=== PATIENT | male | born 1935 | race Caucasian/White ===

== ENCOUNTER 2016-12-21 09:14 | Inpatient (IN) ==
--- NOTE | 2016-12-17 14:56 | EKG Report ---
Stationary ECG Study [facility] Test Date: 12/17/2016 2:56:23 PM Pat Name: ARTURO MELGAR Department: Room: Gender: M Trade Recruiter: MANUEL MENDOZA : 1935 Requested by: Dante Mendoza Order Number: [id number] Reading MD: LUIS DELGADO Intervals Edwards Rate: 55 P: 83 IL: 136 QRS: 94 QRSD: 117 T: 56 QT: 455 QTc: 445 Interpretive Statements SINUS RHYTHM BORDERLINE RIGHT AXIS DEVIATION LEFT VENTRICULAR HYPERTROPHY AND ST-T CHANGE Electronically Signed On 12-20-16 18:24:37 CDT by LUIS DELGADO [email or web address]
[2016-12-17 15:04] LABS: Basophils % 0.5 % (0.0-0.8); Eosinophils # 0.2 10*3/uL (0.0-0.87); Eosinophils % 2.4 % (0.00-10.9); Hematocrit 39.4 VOL% (42.0-52.0); Hemoglobin 13.1 GM/DL (14.0-18.0); Immature Granulocytes % 0.3 %; Immature Granulocytes Absolute 0.02 #; Lymphocytes % 31.8 % (21.2-54.2); Mean Corpuscular HGB Conc 33.2 GM/DL (32-36); Mean Corpuscular Hemoglobin 32 PG (27-34); Mean Corpuscular Volume 95.4 FL (87-102); Mean Platelet Volume 9.5 FL (9.6-12.0); Monocytes # 0.5 10*3/uL (0.11-0.8); Monocytes % 8.4 % (1.7-12.7); Neutrophils # 3.5 10*3/uL (1.4-7.4); Neutrophils % 56.6 % (38.7-73.9); Platelet Count 225 T/CUMM (130-400); Red Blood Count 4.13 MC/CUMM (3.8-5.5); Red Cell Distribution Width 13.2 % (9.3-17.3); White Blood Count 6.2 T/CUMM (4-12)
--- NOTE | 2016-12-17 15:14 | XRay Report ---
XR chest 2V Indication: Preop Comparison: None. Technique: PA and lateral chest x-ray was performed. Findings: Heart size, mediastinal contour, and hilar structures demonstrate no significant abnormalities. The lung parenchyma is clear. Bones and soft tissues demonstrate no significant abnormalities. Impression: 1. No active cardiopulmonary disease. 12/17/2016 3:12 PM PROCEDURE INTERPRETED AT [facility] DEPARTMENT OF RADIOLOGY Final Report Signed by: Dr. Marlon Sorensen
[2016-12-17 15:59] LABS: Albumin 3.6 G/DL (3.4-5.0); Bilirubin,Total 0.6 MG/DL (0.2-1.0); Osmolality,Calculated 288.1 MOS/KG (273-304); Potassium 4.2 MMOL/L (3.5-5.1); Total Protein 6.6 G/DL (6.4-8.3)
[2016-12-21] MEDS ORDERED: ceFAZolin 1,000 MG VIAL ONE (09:26)
[2016-12-21] MEDS ORDERED: SODIUM CHLORIDE 0.9% 100 ML IV ONE (09:26)
[2016-12-21] MEDS: LACTATED RINGERS 1,000 ML IV SCH ×2 (09:50→21:43)
[2016-12-21] MEDS ORDERED: FAMOTIDINE 20 MG TABLET PO ONE (09:59)
[2016-12-21] MEDS ORDERED: DIAZEPAM 5 MG TABLET PO ONE (09:59)
[2016-12-21] MEDS ORDERED: FAMOTIDINE 20 MG TABLET ONE (11:14)
[2016-12-21] MEDS ORDERED: TISSUE ADHESIVE 1 EACH APPLICATOR TOP ONE (13:02)
[2016-12-21] MEDS ORDERED: BUPIVACAINE 0.25% 50 ML VIAL ONE (13:03)
[2016-12-21] MEDS ORDERED: LIDOCAINE 1%/EPI INJ 20 ML VIAL ONE (13:03)
--- NOTE | 2016-12-21 14:09 | Fluoroscopy Report ---
FL cholangiogram in surgery Indication: Abdominal pain. Cholecystectomy. Comparison: None. Technique: Injection of the cystic duct using intravenous contrast was performed intraoperatively. Multiple fluoroscopic images were then captured and stored. Total fluoroscopy time was 5 seconds. Findings: Normal filling of the extrahepatic bile duct and retrograde filling of the intrahepatic bile ducts appears within normal limits. There is no evidence of biliary duct dilatation, choledocholithiasis, or abnormal junction of the biliary and pancreatic systems. Filling of the small bowel appears within normal limits. Impression: 1. No significant abnormality of the biliary system is suggested. 12/21/2016 2:06 PM PROCEDURE INTERPRETED AT [facility] DEPARTMENT OF RADIOLOGY Final Report Signed by: Dr. Marlon Sorensen
--- NOTE | 2016-12-21 14:10 | Operative Note ---
Date of procedure: 12/21/16 Pre-op diagnosis: Cholelithiasis with chronic cholecystitis Post-op diagnosis: same Procedure: Laparoscopic cholecystectomy with intraoperative cholangiogram Findings and technique: After informed consent was obtained patient brought the operating room and placed supine position. After successful induction of general anesthesia the patient's abdomen was prepped and draped in usual sterile fashion. Local anesthesia was infiltrated the umbilicus were small transverse incision was made in open technique used in the peritoneal cavity under direct vision. Sanchez cannula was inserted and a pneumoperitoneum was established. Camera was inserted and the gallbladder visualized. It was thickened and diseased appearing with adhesions between the body of the gallbladder and the omentum. Exploration of the abdomen laparoscopically did not show any other pathology that was obvious. Ports were placed in the upper abdomen under camera vision in the fundus the gallbladder grasped and retracted upwards. Dissection was used to dissected the adhesions free from the body and neck of the gallbladder exposing the neck of the gallbladder. This was grasped and retracted downward and laterally and the peritoneum over the neck of the gallbladder incised exposing the tapering neck of the gallbladder as it formed the proximal cystic duct and cystic arteries branched over the medial neck of the gallbladder. The critical view of safety was achieved before incising any structures. A small incision was made at the distal gallbladder neck where a cholangiogram was obtained under fluoroscopy which appeared normal. The cystic duct was doubly clipped and divided right at the gallbladder neck as were cystic artery branches right on the wall the gallbladder. Dissection was used to dissected gallbladder free from the liver bed with electrocautery on any potential bleeding points and meticulous hemostasis maintained. The gallbladder was removed through the umbilical port site in an Endo Catch bag in the right upper quadrant liberally irrigated suctioned dry and inspected for about 10 minutes and no bleeding or bile leakage noted. Ports removed and no bleeding noted from the port sites. Gas was evacuated from the abdomen and the fascial defect at the umbilicus closed with a running 0 Monocryl suture. The skin incisions were closed with skin clips. He appeared to tolerate the procedure well and had no apparent complications. Anesthesia: GETA, local Surgeon / Physician: Dante Friend III. Estimated blood loss: minimal Specimens: other (Gallbladder) Condition: stable Disposition: PACU Results - Labs CBC & BMP: 12/17/16 14:40 12/17/16 15:16 Discharge Plan - Discharge Medications No Action Carbidopa/Levodopa [Carbidopa-Levodopa 25-100 Tab] 2 each PO QID Lisinopril 20 mg PO DAILY Multivitamin [Multivitamins] 1 each PO DAILY Polyethylene Glycol Powder [Miralax] 17 gm PO DAILY #238 gm Rivastigmine Cap [Exelon Cap] 1.5 mg PO BID W/MEALS Citalopram Hydrobromide [Citalopram HBr] 10 mg PO BID Doxazosin Mesylate 1 mg PO BEDTIME Entacapone [Comtan] 200 mg PO QID - Follow Up or Referral - Forms/Instructions
[2016-12-21] MEDS ORDERED: ONDANSETRON 4 MG/2 ML VIAL IV PRN ×2 (14:11→14:39)
[2016-12-21] MEDS ORDERED: PROPOFOL 200 MG/20 ML VIAL IV ONE (14:26)
[2016-12-21] MEDS ORDERED: hydrALAZINE 20 MG/1 ML VIAL ONE ×2 (14:27→14:39)
[2016-12-21] MEDS ORDERED: SUCCINYLCHOLINE 200 MG/10 ML VIAL ONE (14:27)
[2016-12-21] MEDS ORDERED: fentaNYL 100 MCG/2 ML VIAL ONE ×2 (14:27→14:28)
[2016-12-21] MEDS ORDERED: ROCURONIUM 100 MG/10 ML VIAL IV ONE (14:27)
[2016-12-21] MEDS ORDERED: LABETALOL 100 MG/20 ML VIAL IV ONE (14:27)
[2016-12-21] MEDS ORDERED: NEOSTIGMINE 10 MG/10 ML VIAL ONE (14:27)
[2016-12-21] MEDS ORDERED: GLYCOPYRROLATE 0.4 MG/2 ML VIAL ONE (14:27)
[2016-12-21] MEDS ORDERED: LACTATED RINGERS 1,000 ML IV ONE (14:27)
--- NOTE | 2016-12-21 14:33 | Anesthesia Post-Op ---
Anesthesia Post OP - Post Ansesthetic Evaluation Patient seen in post op: Yes Resp: within normal limits CV: within normal limits Mental: within normal limits Temp: within normal limits Scpb-Mp-[id number]: within normal limits Nausea and Vomiting: within normal limits Pain: within normal limits
[2016-12-21] MEDS: HYDROmorphone 2 MG/1 ML VIAL IV PRN ×2 (14:44→15:08)
[2016-12-21] MEDS ORDERED: hydrALAZINE 20 MG/1 ML VIAL IV ONE (14:50)
[2016-12-21] MEDS ORDERED: LACTATED RINGERS 1,000 ML IV SCH (15:00)
[2016-12-21 16:19] LABS: Hematocrit 39.3 VOL% (42.0-52.0); Hemoglobin 13.2 GM/DL (14.0-18.0)
[2016-12-21] MEDS: ENTACAPONE 200 MG TABLET PO SCH ×2 (18:00→21:27)
[2016-12-21] MEDS: RIVASTIGMINE 1.5 MG CAPSULE PO SCH (18:00)
[2016-12-21] MEDS: CARBIDOPA/LEVODOPA 25-100 MG TABLET PO SCH ×2 (18:00→21:27)
[2016-12-21] MEDS: DOXAZOSIN 1 MG TABLET PO SCH (21:27)
[2016-12-21] MEDS: CITALOPRAM 20 MG TABLET PO SCH (21:27)
[2016-12-21 22:03] LABS: Hematocrit 39.9 VOL% (42.0-52.0); Hemoglobin 13.6 GM/DL (14.0-18.0)
[2016-12-22 07:27] LABS: Hemoglobin 13.1 GM/DL (14.0-18.0)
--- NOTE | 2016-12-22 08:29 | Event Note ---
VSS. Hct stable. No sign of bleeding or complication. Likely home today
[2016-12-22] MEDS: CITALOPRAM 20 MG TABLET PO SCH ×2 (09:24→21:35)
[2016-12-22] MEDS: RIVASTIGMINE 1.5 MG CAPSULE PO SCH ×2 (09:24→18:02)
[2016-12-22] MEDS: CARBIDOPA/LEVODOPA 25-100 MG TABLET PO SCH ×4 (09:24→21:35)
[2016-12-22] MEDS: ENTACAPONE 200 MG TABLET PO SCH ×4 (09:24→21:35)
[2016-12-22] MEDS: LISINOPRIL 20 MG TABLET PO SCH (09:24)
--- NOTE | 2016-12-22 11:30 | Pathology Report from [facility] ---
[facility] ACCESSION # : [id number] PATIENT NAME : Arturo Vieira ORDERING DR : ZULLY MENDOZA III, MD CLINICAL HX: Cholecystitis - Cholelithiasis POST-OP DX: Same SPECIMEN INFO: Gallbladder GROSS DESCRIPTION: The specimen is received in formalin labeled with the patients name and consists of an intact gallbladder measuring 8.4 x 2.0 cm. The serosa is smooth and pink-neves. The wall averages 0.1 cm in thickness. The mucosal surface is granular cintron-neves. The lumen contains hyperemic gritty material admixed with approximately seven lobulated yellow-cintron stones collectively measuring 1.5 x 1.4 cm and the largest stone measuring up to 0.6 cm. [employer] sections submitted in one cassette. DIAGNOSIS FOR ARTURO VIEIRA: GALLBLADDER, CHOLECYSTECTOMY: Chronic cholecystitis. Cholelithiasis. COLLECTED DATE: 12/21/2016 [facility] REPORT DATE: 12/22/2016 ELECTRONICALLY SIGNED BY: Jeremie Berkowitz M.D. 12/22/2016 - 10:01:37 PRIYANKA
[2016-12-22] MEDS: TAMSULOSIN 0.4 MG CAPSULE PO SCH (15:21)
[2016-12-22] MEDS: DOXAZOSIN 1 MG TABLET PO SCH (21:35)
[2016-12-22 23:26] LABS: Apearance,Urine CLEAR (Clear); Bacteria,Urine Occasional /HPF (Few); Bilirubin,Urine Negative (Negative); Blood, Urine Moderate mg/dL (Negative); Glucose,Urine (UA) 50 mg/dL (Negative); Ketones,Urine 5 mg/dL (Negative); Nitrite,Urine Negative (Negative); Protein,Urine Negative; RBC,Urine 15 /HPF (0-4); Urine Color Yellow (Yellow); Urine Specific Gravity 1.008 (1.001-1.035); Urine Urobilinogen < 2.0 EU/DL (0.2-1.0); WBC,Urine 1 /HPF (0-6)
[2016-12-23] MEDS: LACTATED RINGERS 1,000 ML IV SCH ×2 (00:10→14:06)
[2016-12-23] MEDS: MORPHINE 2 MG/1 ML SYRINGE IV PRN (04:28)
[2016-12-23] MEDS: TAMSULOSIN 0.4 MG CAPSULE PO SCH (08:23)
[2016-12-23] MEDS: CITALOPRAM 20 MG TABLET PO SCH ×2 (08:23→20:53)
[2016-12-23] MEDS: ENTACAPONE 200 MG TABLET PO SCH ×4 (08:23→20:52)
[2016-12-23] MEDS: RIVASTIGMINE 1.5 MG CAPSULE PO SCH ×2 (08:23→18:10)
[2016-12-23] MEDS: LISINOPRIL 20 MG TABLET PO SCH (08:23)
[2016-12-23] MEDS: CARBIDOPA/LEVODOPA 25-100 MG TABLET PO SCH ×4 (08:23→20:53)
--- NOTE | 2016-12-23 08:39 | Event Note ---
The nurses report that he has been confused and probably has had some delirium during the night. He has no complaints this morning. The nurses state that he has not been voiding on his own and is required in and out catheterization. Clearly has some urinary retention. He is not capable on his own of doing in and out catheters and I do not know if his family can either. We will consult urology to see what our options are. I believe we started Flomax yesterday. We will coordinate with family to see what the next best step would be as far as discharge. He may do best with a swing bed.
[2016-12-23] MEDS ORDERED: BISACODYL 10 MG SUPP RECTAL ONE (12:04)
--- NOTE | 2016-12-23 12:11 | Urology Consultation ---
Assessment and Plan (1) Urinary retention with incomplete bladder emptying Status: Acute Assessment and plan: Instruct the nurses to increase in and out catheterization to every 4-6 hours. I have ordered catheterization every 6 hours. Instructed to obtain post voiding residual at time of catheterization. If PVR is greater than 400 mL, we will need to increase catheterization to every 4 hours. Current Visit: Yes (2) Enlarged prostate with urinary retention Status: Acute Assessment and plan: Agree with starting Flomax 0.4 mg daily. Added finasteride 5 mg daily. Hopefully with intermittent catheterization and medication he will respond. Nursing staff reports he is being considered for swing bed/rehab. I agree with this and would recommend continuing intermittent catheterization if going to an inpatient facility. Current Visit: Yes (3) Constipation Status: Acute Assessment and plan: Patient without a bowel movement since surgery, per nursing staff. On exam he did have some stool in the rectal vault. Due to his Parkinson's, recent anesthesia, and poor mobility he likely has chronic constipation. He is taking Colace. I have ordered Dulcolax suppository 1. May need chronic constipation regimen per primary care. Thank you for allowing me to participate in his care. We will follow-up while inpatient, and will need follow-up as an outpatient after rehab. Current Visit: Yes History of Present Illness - Data of Consult Consult date: 12/23/16 Requesting Physician: Dante Friend III. - Consult Narrative Reason for consult: Voiding complaint with urinary retention History of present illness: Mr. Vieira is a 81 year old male admitted admitted status post Cholecystectomy, laparoscopically, on 12/21/2014. Postoperatively he was noted to be unable to void. Patient had significant delirium. He was unable to give a great history, but nursing staff reports that he had the urge to void without the ability. He has been started on Flomax, and he was catheterized on an intermittent basis every 8 hours. His last catheterization was over 4 hours ago. At that time he had over 750 mL. He has attempted to void several times, and the teaching aide reports he has been up to the restroom several times. Nursing staff reports no bowel movement since surgery. He has underlying history of Parkinson's disease. It is unclear of his urinary history. He relates no prior voiding complaints. However, his ability to give a good history is somewhat in question. Onset within the last 2 days since surgery. Persistent and severe in nature. Patient denies previous history of urgency frequency, does admit some hesitancy. Denies prior urologic intervention, or prostatic surgery. Denies seeing an urologist in the past. He does have doxazosin 1 mg at bedtime. This is from home meds, and I am unsure if this was from voiding complaints or antihypertensive. He reports a decreased appetite. CC: Dante Friend III., Voiding complaints - Home Medications and Allergies Home Medications: Home Medications Medication Instructions Recorded Confirmed Type Carbidopa/Levodopa 2 each PO QID 12/01/16 12/21/16 History [Carbidopa-Levodopa 25-100 Tab] Doxazosin Mesylate 1 mg PO BEDTIME 12/01/16 12/21/16 History Lisinopril 20 mg PO DAILY 12/01/16 12/21/16 History Multivitamin [Multivitamins] 1 each PO DAILY 12/01/16 12/21/16 History Citalopram Hydrobromide 10 mg PO TID 12/17/16 12/21/16 History [Citalopram HBr] Entacapone [Comtan] 200 mg PO QID 12/17/16 12/21/16 History Rivastigmine Cap [Exelon Cap] 1.5 mg PO BID W/MEALS 12/17/16 12/21/16 History Allergies/Adverse Reactions: Allergies Allergy/AdvReac Type Severity Reaction Status Date / Time No Known Allergies Allergy Verified 12/21/16 09:43 ROS unobtainable: due to delirium Review of systems: I did perform review of systems, but his delirium seems to be able to give a good history. - Constitutional Constitutional: Present: anorexia, weakness. Absent: fatigue, fever(s), headache(s) - EENT Eyes: Absent: blurry vision Ears: Absent: ear pain Nose, mouth and throat: Absent: dysphagia, sore throat - Cardiovascular Cardiovascular: Absent: chest pain at rest, dyspnea, edema - Respiratory Respiratory: Absent: cough, hemoptysis - Gastrointestinal Gastrointestinal: Absent: abdominal pain, vomiting - Genitourinary Genitourinary: Present: difficulty urinating, scrotal swelling. Absent: flank pain, hematuria, nocturia, testicular pain - Musculoskeletal Musculoskeletal: Present: muscle weakness. Absent: back pain - Neurological Neurological: Present: abnormal gait, confusion - Psychiatric Psychiatric: Present: as per HPI, difficulty concentrating, memory loss - Endocrine Endocrine: Present: fatigue - Hematologic/Lymphatic Hematologic/Lymphatic: Absent: easy bleeding, easy bruising Exam - Constitutional Vitals: Period Temp Pulse Resp BP Sys/Serrano Pulse Ox Last 24 Hr 97.8 F-99.6 F 66-86 18-20 152-197/73-115 92-95 General appearance: normal weight, no acute distress - Head Head exam: Present: normal inspection, atraumatic - Eye Eye exam: Present: EOMI. Absent: scleral icterus - ENT ENT exam: Present: normal exam - Neck Neck exam: Present: normal inspection. Absent: lymphadenopathy - Respiratory Respiratory exam: Absent: accessory muscle use, chest wall tenderness, wheezes - Cardiovascular Cardiovascular exam: Present: other (warm extremities, well perfused). Absent: JVD - GI/Abdominal GI/Abdominal exam: Present: normal bowel sounds, other (dressing intact to surgical site). Absent: distended, guarding - Genitourinary Genitourinary: penis with no lesions or discharge (uncircumcised- easily retracted), diffusely enlarged prostate without tenderness Genitourinary: testicular mass: left (Left hydrocele) - Extremities Exam Extremities exam: Present: normal capillary refill. Absent: edema - Back Exam Back exam: Absent: CVA tenderness (L), CVA tenderness (R) - Neurological Exam Neurological exam: Present: alert, altered (oriented to person, but not situation) - Psychiatric Psychiatric exam: Absent: agitated - Skin Skin exam: Present: normal color, intact. Absent: rash Results - Labs CBC & BMP: 12/22/16 06:34 12/17/16 15:16 Lab Results: I have reviewed the past 24 hour labs (UA was unremarkable- negative for LE or Nitrites)
[2016-12-23] MEDS: FINASTERIDE 5 MG TABLET PO SCH (12:40)
[2016-12-23] MEDS: POLYETHYLENE GLYCOL POWDER 17 GM PACK PO SCH (14:06)
[2016-12-23] MEDS: DOXAZOSIN 1 MG TABLET PO SCH (20:53)
[2016-12-24] MEDS: MORPHINE 2 MG/1 ML SYRINGE IV PRN (00:22)
[2016-12-24] MEDS: LACTATED RINGERS 1,000 ML IV SCH (03:47)
[2016-12-24] MEDS ORDERED: hydrALAZINE 20 MG/1 ML VIAL IV PRN (05:17)
[2016-12-24] MEDS ORDERED: hydrALAZINE 20 MG/1 ML VIAL IV ONE (05:17)
[2016-12-24 05:39] LABS: Basophils % 0.2 % (0.0-0.8); Eosinophils # 0.2 10*3/uL (0.0-0.87); Eosinophils % 1.7 % (0.00-10.9); Hematocrit 37.1 VOL% (42.0-52.0); Hemoglobin 12.7 GM/DL (14.0-18.0); Immature Granulocytes % 0.6 %; Immature Granulocytes Absolute 0.07 #; Lymphocytes # 1.1 10*3/uL (1.4-4.0); Mean Corpuscular HGB Conc 34.2 GM/DL (32-36); Mean Corpuscular Hemoglobin 32 PG (27-34); Mean Corpuscular Volume 92.3 FL (87-102); Mean Platelet Volume 10.1 FL (9.6-12.0); Monocytes # 0.8 10*3/uL (0.11-0.8); Monocytes % 6.3 % (1.7-12.7); Neutrophils # 10.4 10*3/uL (1.4-7.4); Neutrophils % 82.2 % (38.7-73.9); Platelet Count 227 T/CUMM (130-400); Red Blood Count 4.02 MC/CUMM (3.8-5.5); Red Cell Distribution Width 13.3 % (9.3-17.3); White Blood Count 12.6 T/CUMM (4-12)
[2016-12-24 06:01] LABS: Alanine Aminotransferase < 9 U/L (16-61); Albumin 2.9 G/DL (3.4-5.0); Alkaline Phosphatase 80 U/L (45-117); Aspartate Amino Transferase 26 U/L (0-37); Blood Urea Nitrogen 41 MG/DL (7-18); Calcium 9.1 MG/DL (8.5-10.1); Glucose 113 MG/DL (74-106); Magnesium 2.5 MG/DL (1.8-2.4); Potassium 3.8 MMOL/L (3.5-5.1); Sodium 143 MMOL/L (136-145); Total Protein 5.9 G/DL (6.4-8.3)
[2016-12-24] MEDS ORDERED: BISACODYL 10 MG SUPP RECTAL ONE (07:37)
--- NOTE | 2016-12-24 07:41 | Urology Progress Note ---
Assessment and Plan (1) Urinary retention with incomplete bladder emptying Status: Acute Assessment and plan: Instruct the nurses to continue in and out catheterization to every 6 hours. Instructed to have patient attempt to void prior to catheterization. Obtain post voiding residual at time of catheterization. Does not need formal bladder scans, as we are catheterizing him for accurate voiding volumes. Current Visit: Yes (2) Enlarged prostate with urinary retention Status: Acute Assessment and plan: Agree with continuing Flomax 0.4 mg daily and finasteride 5 mg daily. Hopefully with intermittent catheterization and medication he will respond. Nursing staff reports he is being considered for swing bed/rehab. I agree with this and would recommend continuing intermittent catheterization if going to an inpatient facility. Current Visit: Yes (3) Constipation Status: Acute Assessment and plan: Patient without a bowel movement since surgery, per nursing staff. On exam he did have some stool in the rectal vault. Due to his Parkinson's, recent anesthesia, and poor mobility he likely has chronic constipation. He has been unable to void with Colace, Dulcolax, and MiraLAX. Will order a second Dulcolax suppository this morning. May need chronic constipation regimen per primary care. I spoke with his daughter, Abena, this morning. She understands that this may be a chronic problem. She reports that he has had intermittent incontinence episodes, evidence by urinating on his pants. She reports that he often has a very slow stream. She describes it as a "trickle". She reports he is very private and will not complain or allow her to assist him much. I have discussed him continuing needing intermittent catheterization. After leaving for swing bed he will need to be seen in follow-up at our clinic. At that time we will have to decide if he needs catheterization with indwelling [place]. Thank you for allowing me to participate in his care. We will follow-up while inpatient, and will need follow-up as an outpatient after rehab. Current Visit: Yes Urology - PN: Subj Interval history: Continued urinary retention. Nursing staff reports he feels that he needs to void, but he is unable to. He has refused catheterization several times. He finally allow the nurse to catheterize due to abdominal pain. She obtained to 950 mL of urine. Still no bowel movement after Dulcolax suppository, MiraLAX, and Colace. He is ambulatory with assistance. Nurse reports his daughter noted he was voiding fairly well prior to the surgery. He denies abdominal pain nausea vomiting. He reports that he is voiding. He does remember intermittent catheterization "a couple times" with prompting. Nurse reports that he has not been able to void volitionally. Exam - Constitutional Vitals: Period Temp Pulse Resp BP Sys/Serrano Pulse Ox Last 24 Hr 98.0 F-99.9 F 72-86 16-20 140-192/71-102 92-97 General appearance: no acute distress - Head Head exam: Present: normal inspection, atraumatic - Neck Neck exam: Present: normal inspection - Respiratory Respiratory exam: Present: other (Unlabored breathing, bilateral chest rise and symmetric) - Cardiovascular Cardiovascular exam: Present: other (Capillary refill less than 2 seconds). Absent: JVD - GI/Abdominal GI/Abdominal exam: Present: normal bowel sounds, soft, other (Surgical dressing sites clean and intact). Absent: distended, guarding - Genitourinary Genitourinary: diffusely enlarged prostate without tenderness (Approximately 60 + g on exam) Genitourinary: testicular mass: left (Left hydrocele) - Extremities Exam Extremities exam: Absent: edema - Neurological Exam Neurological exam: Present: alert. Absent: oriented X3 (Oriented to person but not situation) - Skin Skin exam: Absent: rash Results - Labs CBC & BMP: 12/24/16 05:22 12/24/16 05:22 Lab Results: I have reviewed the past 24 hour labs - Impressions 81-year-old with enlarged prostate and postop urinary retention in the setting of Parkinson's disease and constipation Failed voiding trial with continued need for intermittent catheterization Specialty Discharge - Follow Up or Referrals Follow up with: Uriel Walker MD [Physician] - - Speciality Discharge Instructions Urology Instructions: Needs to continue intermittent catheterization at swing bed. Needs follow-up appointment in urology clinic at time of discharge from swing bed. Continue Flomax 0.4 mg daily and finasteride 5 mg daily.
[2016-12-24] MEDS ORDERED: NIFEdipine 10 MG CAPSULE PO PRN (08:48)
[2016-12-24] MEDS: LISINOPRIL 20 MG TABLET PO SCH (09:38)
[2016-12-24] MEDS: CARBIDOPA/LEVODOPA 25-100 MG TABLET PO SCH ×4 (09:38→21:51)
[2016-12-24] MEDS: FINASTERIDE 5 MG TABLET PO SCH (09:38)
[2016-12-24] MEDS: CITALOPRAM 20 MG TABLET PO SCH ×2 (09:38→21:50)
[2016-12-24] MEDS: RIVASTIGMINE 1.5 MG CAPSULE PO SCH ×2 (09:38→18:47)
[2016-12-24] MEDS: ENTACAPONE 200 MG TABLET PO SCH ×4 (09:38→21:52)
[2016-12-24] MEDS: amLODIPine 10 MG TABLET PO SCH (09:38)
[2016-12-24] MEDS: POLYETHYLENE GLYCOL POWDER 17 GM PACK PO SCH (09:38)
[2016-12-24] MEDS: TAMSULOSIN 0.4 MG CAPSULE PO SCH (09:38)
--- NOTE | 2016-12-24 10:51 | Hospitalist Consult Note ---
Assessment and Plan (1) Hypertension Status: Acute Assessment and plan: The patient was noted to be grossly hypertensive in the early hours of this morning. Blood pressure was noted at 192/102. Hospital medicine was consulted to assist in the management. The patient's home medications lisinopril 20 mg was restarted. In addition, Norvasc 10 mg p.o. daily was initiated. We will monitor blood pressures closely. We will continue to provide supportive care. We will recheck labs in a.m.. Upon review of the patient's home medications, the patient was only on one antihypertensive agent prior to hospitalization. In addition, the patient has also experienced significant urinary retention which may be a attributing factor to the sudden elevation in blood pressure. The patient has been seen and evaluated by urology and intermittent catheterizations are performed per nursing staff. Current Visit: Yes History of Present Illness - Consult Narrative Reason for consult: Medical management of hypertension History of present illness: This is an 81 year old male that presented to [facility] on December 21, 2016 for an elective laparoscopic cholecystectomy with Intra- operative cholangiogram. The patient has a medical history significant for hypertension, dementia, Parkinson's disease, benign prostatic hypertrophy, and chronic Skylar cystitis. There is no significant surgical history reported otherwise. The patient underwent laparoscopic cholecystectomy on December 21, 2016 and had been recovering well. On the morning of December 24, 2016, the nursing staff noted a gradual decline in the patient's blood pressure. Multiple antihypertensive agents were given with minimal response. Hospital medicine was consulted to assist in the medical management of the patient's hypertension. CC: Dante Friend, III., - Home Medications and Allergies Home Medications: Home Medications Medication Instructions Recorded Confirmed Type Carbidopa/Levodopa 2 each PO QID 12/01/16 12/21/16 History [Carbidopa-Levodopa 25-100 Tab] Doxazosin Mesylate 1 mg PO BEDTIME 12/01/16 12/21/16 History Lisinopril 20 mg PO DAILY 12/01/16 12/21/16 History Multivitamin [Multivitamins] 1 each PO DAILY 12/01/16 12/21/16 History Citalopram Hydrobromide 10 mg PO TID 12/17/16 12/21/16 History [Citalopram HBr] Entacapone [Comtan] 200 mg PO QID 12/17/16 12/21/16 History Rivastigmine Cap [Exelon Cap] 1.5 mg PO BID W/MEALS 12/17/16 12/21/16 History Finasteride [Proscar] 5 mg PO DAILY #30 tablet 12/24/16 Rx Tamsulosin [Flomax] 0.4 mg PO DAILY #30 capsule 12/24/16 Rx Allergies/Adverse Reactions: Allergies Allergy/AdvReac Type Severity Reaction Status Date / Time No Known Allergies Allergy Verified 12/21/16 09:43 Medical,Surgical,& Family Hx - Medical History Cardio: History of: Hypertension Neurology: History of: Parkinson's Disease No history of: Seizures HEENT: History of: Eye Problem (bilateral cataracts, wears glasses) Gastrointestinal: History of: GI Problems (cholecystitis) - Surgical History Abdominal Surgeries: Surgical HX of: Abdominal Surgery, Cholecystectomy - Social History Smoking Status: Never smoker Frequency of Alcohol Use: None Type of Drug Use: None Exam - Constitutional Vitals: Period Temp Pulse Resp BP Sys/Serrano Pulse Ox Last 24 Hr 97.9 F-99.9 F 72-86 16-20 109-192/57-102 92-97 General appearance: normal weight, no acute distress - Head Head exam: Present: normal inspection, normocephalic - Eye Eye exam: Present: EOMI Pupils: Present: JOCELYN, normal accommodation - ENT ENT exam: Present: normal exam, normal external ear exam, normal oropharynx - Neck Neck exam: Present: normal inspection. Absent: lymphadenopathy, meningismus, thyromegaly - Respiratory Respiratory exam: Present: clear to auscultation bilaterally. Absent: rales, rhonchi, stridor, wheezes - Cardiovascular Cardiovascular exam: Present: regular rate and rhythm. Absent: carotid bruit, diastolic murmur, gallop, JVD, rubs, systolic murmur - GI/Abdominal GI/Abdominal exam: Present: normal bowel sounds, soft - Extremities Exam Extremities exam: Present: normal inspection, normal capillary refill, full ROM. Absent: edema - Back Exam Back exam: Present: normal inspection - Neurological Exam Neurological exam: Present: alert, oriented X3, CN II-XII intact - Psychiatric Psychiatric exam: Present: normal affect, normal mood - Skin Skin exam: Present: normal color, warm Results - Labs CBC & BMP: 12/24/16 05:22 12/24/16 05:22 Lab Results: I have reviewed the past 24 hour labs Quality Measures - VTE Contraindication to Pharmacological VTE Prophylaxis: High Risk of Bleeding Specialty Discharge - Follow Up or Referrals Follow up with: Uriel Walker MD [Physician] -
[2016-12-24] MEDS: DOXAZOSIN 1 MG TABLET PO SCH (21:51)
[2016-12-25 05:47] LABS: Calcium 9.4 MG/DL (8.5-10.1); Magnesium 2.3 MG/DL (1.8-2.4); Osmolality,Calculated 293.1 MOS/KG (273-304); Potassium 3.9 MMOL/L (3.5-5.1)
--- NOTE | 2016-12-25 07:01 | Event Note ---
He is doing okay from the gallbladder surgery itself but we have had difficulty with urinary retention and confusion and hypertension. I appreciate the help from hospital medicine. I feel like he is okay to go to rehabilitation today.
--- NOTE | 2016-12-25 07:36 | Urology Progress Note ---
Assessment and Plan (1) Urinary retention with incomplete bladder emptying Status: Acute Assessment and plan: Instruct the nurses to continue in and out catheterization to every 6 hours. Instructed to have patient attempt to void prior to catheterization. Obtain post voiding residual at time of catheterization. We will need to continue intermittent catheterization at swing bed. If he is unable to do this when discharged, an indwelling catheter may be placed. He will need follow-up in the urology clinic. Current Visit: Yes (2) Enlarged prostate with urinary retention Status: Acute Assessment and plan: Agree with continuing Flomax 0.4 mg daily and finasteride 5 mg daily. I have ordered this as a home medication. Hopefully with intermittent catheterization and medication he will respond. Nursing staff reports he is being considered for swing bed/rehab. I agree with this and would recommend continuing intermittent catheterization if going to an inpatient facility. Current Visit: Yes (3) Constipation Status: Acute Assessment and plan: Patient without bowel movement since surgery. He continues on Colace, Dulcolax , and MiraLAX. As appetite improves, if still no bowel movement he may need an enema. May need chronic constipation regimen per primary care. Thank you for allowing me to participate in his care. He will need follow-up as an outpatient after rehab. Current Visit: Yes Urology - PN: Subj Interval history: Continues to be unable to void. Intermittent catheterization with 375 mL this morning. Patient more alert today. He reports no significant trouble voiding prior to admission. Still no bowel movement since surgery. Nurse reports limited appetite. Exam - Constitutional Vitals: Period Temp Pulse Resp BP Sys/Serrano Pulse Ox Last 24 Hr 97.8 F-98.9 F 67-82 17-20 121-200/76-98 92-99 General appearance: no acute distress - Respiratory Respiratory exam: Present: other (Unlabored breathing) - Cardiovascular Cardiovascular exam: Present: regular rate and rhythm. Absent: JVD - GI/Abdominal GI/Abdominal exam: Present: soft. Absent: tenderness, rebound - Genitourinary Genitourinary: testicular mass: left (Hydrocele) - Extremities Exam Extremities exam: Present: normal capillary refill. Absent: edema - Neurological Exam Neurological exam: Present: alert, oriented X3 (Oriented to person place and situation) Results - Labs CBC & BMP: 12/24/16 05:22 08/11/17 04:41 Lab Results: I have reviewed the past 24 hour labs Specialty Discharge - Follow Up or Referrals Follow up with: Uriel Walker MD [Physician] -
[2016-12-25] MEDS: LACTATED RINGERS 1,000 ML IV SCH (07:39)
--- NOTE | 2016-12-25 09:58 | Discharge Summary ---
Hospital Course - Hospital Course Hospital Course: 81-year-old white male with history of hypertension and Parkinson's who followed up in Dr. Friend in service clinic with persistent gallbladder issues. He was admitted and taken to the operating room on 12/21/[address] Friend with her performed laparoscopic cholecystectomy with intraoperative cholangiogram. Postoperatively patient had some moderate confusion due to anesthesia and urinary retention. Dr. Walker from urology was consulted and patient was started on Flomax and doxazosin and started on in and out catheterization. Patient was found to have an enlarged prostate and he will require intermittent catheterization until voiding improves. Patient's confusion has improved somewhat and he is impulsive. As far as his gallbladder is concerned patient has done very well. His pain is controlled and he is tolerating a diet. Patient is also on bowel regimen for constipation as well. Patient will be transferred to [facility] today for further rehab and he may continue on to swing bed for Parkinson's rehabilitation. Patient will follow up with Dr. Friend third in [address] Walker from urology. Complete discharge instructions were given. Care coordination, chart review, completed discharge paperwork took approximately 40 minutes. - Time spent with patient Time with patient DS: Greater than 30 minutes Specialty Discharge - Follow Up or Referrals Follow up with: your, PCP [Other] - 2 Weeks (follow up blood pressure) Dante Friend III., MD [Physician] - 1 Week Uriel Walker MD [Physician] - 2 Weeks Discharge Plan - Discharge Data Disposition: Disch/Xfer-Ip Rehab Fac Condition at Discharge: Stable Discharge Diet: heart healthy Activity: as per physical therapy Hygiene: may shower Driving: not until seen by doctor Contact your physician if you experience:: fever over 101, Nausea/Vomiting Wound / Dressing Care Instructions: Okay to shower daily with mild soap and water, pat dry, okay to leave open to air - Discharge Medications New Finasteride [Proscar] 5 mg PO DAILY #30 tablet HYDROcodone/ACETAMIN 7.5-325 [[place] 7.5-325] 1 tablet PO Q4H PRN #20 tablet PRN Reason: Pain Moderate (4-7) Tamsulosin [Flomax] 0.4 mg PO DAILY capsule Tamsulosin [Flomax] 0.4 mg PO DAILY #30 capsule Polyethylene Glycol Powder [Miralax] 17 gm PO DAILY amLODIPine [Norvasc] 10 mg PO DAILY tablet Finasteride [Proscar] 5 mg PO DAILY tablet NIFEdipine CAP [Procardia] 10 mg PO Q4H PRN capsule PRN Reason: Hypertension Continue Carbidopa/Levodopa [Carbidopa-Levodopa 25-100 Tab] 2 each PO QID Lisinopril 20 mg PO DAILY Multivitamin [Multivitamins] 1 each PO DAILY Rivastigmine Cap [Exelon Cap] 1.5 mg PO BID W/MEALS Citalopram Hydrobromide [Citalopram HBr] 10 mg PO TID Doxazosin Mesylate 1 mg PO BEDTIME Entacapone [Comtan] 200 mg PO QID - Follow Up or Referral Follow Up: Dante Friend III., MD [Physician] - 1 Week Uriel Walker MD [Physician] - 2 Weeks your, PCP [Other] - 2 Weeks (follow up blood pressure) - Forms/Instructions Instructions: Urinary Retention in Men (GEN), Laparoscopic Cholecystectomy (DC) Exam - Constitutional Vitals: Period Temp Pulse Resp BP Sys/Serrano Pulse Ox Last 24 Hr 97.8 F-98.9 F 67-82 17-20 121-200/76-98 92-99 Discharge Results Labs on day of discharge: Labs from last 24 hours 12/25/16 04:41 Sodium 142 Potassium 3.9 Chloride 105 Carbon Dioxide 30 Anion Gap 10.9 BUN 42 H Creatinine 1.30 GFR Calculation 55 BUN/Creatinine Ratio 32.00 H Glucose 106 Calculated Osmolality 293.1 Calcium 9.4 Magnesium 2.3 DS: Provider Date of admission: 12/23/16 11:44 Primary care physician: Jia Damon, Attending physician on admission: Dante Friend III., Consults: 12/21/16 16:07 Consult to Pastoral Services [CONS] Routine Comment: Pastoral Screen: Request Firefighter Visit Pastoral Screen Source of Request: Family 12/23/16 08:04 Consult to Physician [CONS] Routine Comment: Consulting Provider: Uriel Walker Consulting Provider Notified: Yes When should Consulting Provider be notified: Now Consult to Specialist Group: Urology When should Consulting Provider be notified: Now Person Notified: pao medina Date Notified: 12/23/16 Time Notified: 08:49 12/23/16 12:29 Consult to Physical Therapy [CONS] Routine Reason for Physical Therapy: Evaluate and Treat Consult Comment: swing bed hopefully today 12/23/16 12:51 Consult to Case Mgmt/Social Srvs [CONS] Routine Reason for Case Mgmt/Social Srvs: Swingbed/SNF/Custodial 12/24/16 05:15 Consult to Physician [CONS] Routine Comment: Consulting Provider: Consulting Provider Notified: Yes When should Consulting Provider be notified: Now Consult to Specialist Group: Hospitalist When should Consulting Provider be notified: Now Person Notified: DR CASTILLO Date Notified: 12/24/16 Time Notified: 05:12 Consult Notification Comment: luis miguel called with consult at 8:16 12/24/16 Discharging clinician: YOUNG Love Expected date of discharge: 12/25/16
[2016-12-25] MEDS: CITALOPRAM 20 MG TABLET PO SCH (10:10)
[2016-12-25] MEDS: LISINOPRIL 20 MG TABLET PO SCH (10:10)
[2016-12-25] MEDS: CARBIDOPA/LEVODOPA 25-100 MG TABLET PO SCH ×2 (10:10→13:33)
[2016-12-25] MEDS: POLYETHYLENE GLYCOL POWDER 17 GM PACK PO SCH (10:10)
[2016-12-25] MEDS: FINASTERIDE 5 MG TABLET PO SCH (10:11)
[2016-12-25] MEDS: RIVASTIGMINE 1.5 MG CAPSULE PO SCH (10:11)
[2016-12-25] MEDS: ENTACAPONE 200 MG TABLET PO SCH ×2 (10:12→13:33)
[2016-12-25] MEDS: TAMSULOSIN 0.4 MG CAPSULE PO SCH (10:12)
[2016-12-25] MEDS: amLODIPine 10 MG TABLET PO SCH (10:16)
[2016-12-25 11:09] VITALS: BP 130/72
== END 2016-12-25 13:50 | DRG 418 ==
LOC: N.OR 09:14 → N.SDSINP 09:19 → N.3E 15:43
PROVIDERS: ADMIT Surgery; ATTEND Surgery
PROC: LAPCHOL (2016-12-21 13:14)